=== PATIENT | female | born 2000 | race Caucasian/White ===

== ENCOUNTER 2019-10-02 07:18 | Emergency (ER) | payer BC ==
[2019-10-02] MEDS ORDERED: Mupirocin Oint 22 GM Tube TOP ONE (07:34)
--- NOTE | 2019-10-02 07:40 | EDM.PDOC ---
ED HPI GENERAL MEDICAL PROBLEM - General Chief Complaint: Skin Complaint Stated Complaint: CELLULITIS Time Seen by Provider: 10/02/19 07:19 - History of Present Illness INITIAL COMMENTS - FREE TEXT/NARRATIVE: 19-year-old female at 25 weeks gestation presenting with mild discomfort under the right armpit for the last 2 to 3 days. Patient reports 1 year ago she was told she had cellulitis of that area. No fevers no chills patient otherwise feels well. No exacerbating or alleviating factors mild burning irritation to the area. No other associated symptoms. She notes that her OB has been monitoring her blood pressure it is been minimally elevated during this but they are currently just watching it. - Related Data Allergies Allergy/AdvReac Type Severity Reaction Status Date / Time No Known Allergies Allergy Verified 10/02/19 07:32 Home Meds: Home Meds Mupirocin Oint [Bactroban Oint] 22 gm .XX TID #1 tube 10/02/19 [Rx] Past Medical History HEENT History: Reports: None Cardiovascular History: Reports: None Respiratory History: Reports: None Genitourinary History: Reports: None PRACTICE SUPPORT SPECIALIST History: Reports: Other (See Below) Other PRACTICE SUPPORT SPECIALIST History: ovarian cyst Musculoskeletal History: Reports: None Neurological History: Reports: None Psychiatric History: Reports: None Endocrine/Metabolic History: Reports: None Hematologic History: Reports: None Immunologic History: Reports: None Dermatologic History: Reports: None - Infectious Disease History Infectious Disease History: Reports: None - Past Surgical History Head Surgeries/Procedures: Reports: None HEENT Surgical History: Reports: Adenoidectomy, Tonsillectomy GI Surgical History: Reports: Cholecystectomy Female Surgical History: Reports: Cystectomy Social & Family History - Family History Family Medical History: Noncontributory - Tobacco Use Smoking Status *Q: Never Smoker - Caffeine Use Caffeine Use: Reports: None - Recreational Drug Use Recreational Drug Use: No ED ROS GENERAL - Review of Systems Review Of Systems: See Below Free Text/Narrative/Comment: General: No fever. Skin: Per HPI Eyes: No vision problems. ENT: No sore throat. Neck: No neck stiffness. Respiratory: No shortness of breath. Cardiac: No chest pain. Gastrointestinal: No nausea, vomiting or abdominal pain. Urinary: No dysuria. Musculoskeletal: No myalgias/arthralgias. Neurologic: No headache. ED EXAM, SKIN/RASH Exam: See Below Text/Narrative:: General Appearance: No acute distress, appears comfortable Skin: Very small pustules with minimal basilar erythema in the right axilla no focal fluctuance no sign of spreading cellulitis no palpable mass affected area roughly 2 cm x 5 cm in the central fold of the axilla HEENT: Normocephalic/atraumatic, sclera anicteric, mucous membranes moist Neck: Normal range of motion Musculoskeletal: No edema or tenderness Neurologic: Awake, alert, no obvious deficits, moving all extremities Psychiatric: Appropriate, cooperative Course - Vital Signs Last Recorded V/S: Last Vital Signs Temp 96.9 F 10/02/19 07:29 Pulse 100 10/02/19 07:29 Resp 17 10/02/19 07:29 BP 148/89 H 10/02/19 07:29 Pulse Ox 93 L 10/02/19 07:29 - Orders/Labs/Meds Meds: Medications Discontinued Medications Generic Name Dose Route Start Last Admin Trade Name Freq PRN Reason Stop Dose Admin Mupirocin 1 gm 10/02/19 07:34 Bactroban Oint TOP 10/02/19 07:35 ONETIME ONE Departure - Departure Time of Disposition: 07:36 Disposition: Home, Self-Care 01 Condition: Good Clinical Impression: Folliculitis - Discharge Information *PRESCRIPTION DRUG MONITORING PROGRAM REVIEWED*: Not Applicable *COPY OF PRESCRIPTION DRUG MONITORING REPORT IN PATIENT DIXON: Not Applicable Prescriptions: Mupirocin Oint [Bactroban Oint] 22 gm .XX TID #1 tube Instructions: Folliculitis Referrals: Mc Ann MD [Primary Care Provider] - Forms: ED Department Discharge Additional Instructions: You have been given a small tube of Bactroban for the next few days. Please wash the area at least once a day gently with soapy water. Please apply the Bactroban ointment 3 times daily for the next 7 days. You should notice improvement relatively quickly over the next few days. The following information is given to patients seen in the emergency department who are being discharged to home. This information is to outline your options for follow-up care. We provide all patients seen in our emergency department with a follow-up referral. The need for follow-up, as well as the timing and circumstances, are variable depending upon the specifics of your emergency department visit. If you don't have a primary care physician on staff, we will provide you with a referral. We always advise you to contact your personal physician following an emergency department visit to inform them of the circumstance of the visit and for follow-up with them and/or the need for any referrals to a consulting specialist. The emergency department will also refer you to a specialist when appropriate. This referral assures that you have the opportunity for follow-up care with a specialist. All of these measure are taken in an effort to provide you with optimal care, which includes your follow-up. Under all circumstances we always encourage you to contact your private physician who remains a resource for coordinating your care. When calling for follow-up care, please make the office aware that this follow-up is from your recent emergency room visit. If for any reason you are refused follow-up, please contact the [facility] Emergency Department at and asked to speak to the emergency department charge nurse. Sepsis Event Note (ED) - Evaluation Sepsis Screening Result: No Definite Risk - Focused Exam Vital Signs: Vital Signs Temp Pulse Resp BP Pulse Ox 10/02/19 07:29 96.9 F 100 17 148/89 H 93 L - Assessment/Plan Assessment:: 19-year-old female is presenting with folliculitis as described in physical exam no signs of overriding cellulitis no sign of abscess no symptoms of systemic infection patient is very minimally hypertensive. Patient is aware of this and her OB is reportedly monitoring it. She is not far enough along to be worried about preeclampsia at this point. And again she reports that she has established follow-up with her OB and that her OB is aware of this. Given her discomfort signs of folliculitis will prescribe topical mupirocin. Because pharmacies are closed today we will dispense a single tube here and a prescription was sent to [facility] for her to pick pulling machine operator tomorrow.
[2019-10-02 07:56] VITALS: BP 143/80; PULSE 95
== END 2019-10-02 07:54 | disposition home or self-care (01) ==
LOC: MW.ED 07:18
DX: O99.712 Diseases of the skin and subcutaneous tissue complicating pregnancy, second trimester (principal); L73.9 Follicular disorder, unspecified; Z3A.25 25 weeks gestation of pregnancy
CPT/HCPCS: 99282; A9270

== ENCOUNTER 2019-12-20 17:03 | Inpatient (IN) | payer BC ==
[2019-12-20] MEDS ORDERED: Sodium Chloride 0.9% 2.5 ML Syringe FLUSH PRN (17:12)
[2019-12-20] MEDS ORDERED: Tranexamic Acid 1,000 MG in Sodium Chloride 0.9% 100 ML IV PRN (17:12)
[2019-12-20] MEDS ORDERED: Methylergonovine 0.2 MG/1 ML Amp IM PRN (17:12)
[2019-12-20] MEDS ORDERED: Terbutaline 1 MG/ML SDV SUBCUT PRN (17:12)
[2019-12-20] MEDS ORDERED: Ondansetron 4 MG/2 ML SDV IVPUSH PRN (17:12)
[2019-12-20] MEDS ORDERED: Water For Irrigation,Sterile 1,000 ML Container IRR PRN (17:12)
[2019-12-20] MEDS ORDERED: Nalbuphine 10 MG/1 ML Vial IVPUSH PRN (17:12)
[2019-12-20] MEDS ORDERED: Lidocaine 1% 50 ML MDV INJECT PRN (17:12)
[2019-12-20] MEDS ORDERED: Misoprostol 200 MCG Tab PO PRN (17:12)
[2019-12-20] MEDS ORDERED: Carboprost Tromethamine 250 MCG/1 ML Amp IM PRN (17:12)
[2019-12-20] MEDS ORDERED: Sodium Chloride 0.9% 10 ML SDV IV PRN (17:12)
[2019-12-20] MEDS ORDERED: Sodium Chloride 0.9% 10 ML Syringe FLUSH PRN (17:12)
[2019-12-20] MEDS ORDERED: Butorphanol 1 MG/ML SDV IVPUSH PRN (17:12)
[2019-12-20] MEDS ORDERED: Oxytocin/0.9 % Sodium Chloride 30 UNIT/500 ML BAG IV SCH ×2 (17:15)
[2019-12-20] MEDS ORDERED: Ampicillin 2 GM in Sodium Chloride 0.9% 100 ML IV ONE (17:30)
[2019-12-20] MEDS: Lactated Ringers 1,000 ML IV SCH (18:09)
[2019-12-20] MEDS: Misoprostol 25 MCG (1/4 of 100 MCG) Tab VAG PRN ×2 (18:12→22:18)
[2019-12-20 20:08] LABS: BLOOD UREA NITROGEN,BUN 7 mg/dL (7.0-18.0); CARBON DIOXIDE,CO2 22.1 mmol/L (21.0-32.0); CHLORIDE,CL 104 mmol/L (98-107); GLUCOSE RANDOM 88 mg/dL (74-106); POTASSIUM,K 3.9 mmol/L (3.5-5.1); SODIUM,NA 136 mmol/L (136-145)
[2019-12-20] MEDS: Ampicillin 1 GM in Sodium Chloride 0.9% 50 ML IV SCH (20:44)
[2019-12-20] MEDS: Labetalol 100 MG Tab PO SCH (20:45)
[2019-12-21] MEDS: Ampicillin 1 GM in Sodium Chloride 0.9% 50 ML IV SCH ×3 (00:59→10:28)
[2019-12-21] MEDS: Misoprostol 25 MCG (1/4 of 100 MCG) Tab VAG PRN (02:17)
[2019-12-21] MEDS ORDERED: fentaNYL 100 MCG/2 ML SDV ONE (04:58)
[2019-12-21] MEDS ORDERED: Ropivacaine HCl/PF 100 ML ONE (04:58)
[2019-12-21] MEDS ORDERED: Ropivacaine 0.2% PF 2 MG/ML 20 ML SDV ONE (04:58)
--- NOTE | 2019-12-21 05:56 | PCM.PREANE ---
Preanesthetic Assessment - Procedure Proposed Procedure: CHRISTA - Anesthesia/Transfusion/Family Hx Anesthesia History: Prior Anesthesia Without Reaction Family History of Anesthesia Reaction: No Transfusion History: No Prior Transfusion(s) Intubation History: Unknown - Review of Systems General: No Symptoms Pulmonary: No Symptoms Cardiovascular: No Symptoms Gastrointestinal: No Symptoms, Other (Reflux) Neurological: Other (Back Pain) - Physical Assessment NPO Status Date: 12/21/19 NPO Status Time: 05:00 (Clear Liquids) Vital Signs: Last Vital Signs Temp Pulse 102 H 12/20/19 20:45 Resp BP 162/93 H 12/20/19 20:45 Pulse Ox Height: 1.57 m Weight: 98.883 kg ASA Class: 2 Mental Status: Alert & Oriented x3 Airway Class: Mallampati = 2 Dentition: Reports: Normal Dentition Thyro-Mental Finger Breadths: 3 Mouth Opening Finger Breadths: 3 ROM/Head Extension: Full Lungs: Clear to Auscultation Cardiovascular: Regular Rate - Lab Values: Laboratory Last Values WBC 12.52 K/uL (4.0-11.0) H 12/20/19 17:48 RBC 4.13 M/uL (4.30-5.90) L 12/20/19 17:48 Hgb 11.6 g/dL (12.0-16.0) L 12/20/19 17:48 Hct 35.8 % (36.0-46.0) L 12/20/19 17:48 MCV 86.7 fL (80.0-98.0) 12/20/19 17:48 MCH 28.1 pg (27.0-32.0) 12/20/19 17:48 MCHC 32.4 g/dL (31.0-37.0) 12/20/19 17:48 RDW Std Deviation 44.8 fl (28.0-62.0) 12/20/19 17:48 RDW Coeff of Ashwin 14 % (11.0-15.0) 12/20/19 17:48 Plt Count 178 K/uL (150-400) 12/20/19 17:48 MPV 12.50 fL (7.40-12.00) H 12/20/19 17:48 Nucleated RBC % 0.0 /100WBC 12/20/19 17:48 Nucleated RBCs # 0 K/uL 12/20/19 17:48 Sodium 136 mmol/L (136-145) 12/20/19 18:43 Potassium 3.9 mmol/L (3.5-5.1) 12/20/19 18:43 Chloride 104 mmol/L (98-107) 12/20/19 18:43 Carbon Dioxide 22.1 mmol/L (21.0-32.0) 12/20/19 18:43 BUN 7 mg/dL (7.0-18.0) 12/20/19 18:43 Creatinine 0.5 mg/dL (0.6-1.0) L 12/20/19 18:43 Est Cr Clr Drug Dosing 140.77 mL/min 12/20/19 18:43 Estimated GFR (MDRD) > 60.0 ml/min 12/20/19 18:43 Glucose 88 mg/dL (74-106) 12/20/19 18:43 Uric Acid 4.1 mg/dL (2.6-7.2) 12/20/19 18:43 Calcium 8.8 mg/dL (8.5-10.1) 12/20/19 18:43 Total Bilirubin 0.3 mg/dL (0.2-1.0) 12/20/19 18:43 AST 24 IU/L (15-37) 12/20/19 18:43 ALT 36 IU/L (14-63) 12/20/19 18:43 Alkaline Phosphatase 155 U/L (46-116) H 12/20/19 18:43 Total Protein 6.6 g/dL (6.4-8.2) 12/20/19 18:43 Albumin 2.9 g/dL (3.4-5.0) L 12/20/19 18:43 Globulin 3.7 g/dL (2.6-4.0) 12/20/19 18:43 Albumin/Globulin Ratio 0.8 (0.9-1.6) L 12/20/19 18:43 Ur Random Creatinine 79.1 mg/dL 12/20/19 20:56 U Random Total Protein 16.7 mg/dL (<11.9) H 12/20/19 20:56 Protein/Creatinin Ratio 0.2 12/20/19 20:56 Membrane Rupture POSITIVE 12/21/19 03:42 SARS-CoV-2 RNA (SHIRAZ) NEGATIVE (NEGATIVE) 12/20/19 18:05 Blood Type O POSITIVE 12/20/19 17:48 Antibody Screen NEGATIVE 12/20/19 17:48 - Allergies Allergies/Adverse Reactions: Allergies Allergy/AdvReac Type Severity Reaction Status Date / Time latex Allergy Hives Verified 12/18/19 17:04 - Blood Blood Available: No Product(s) Available: None - Anesthesia Plan Pre-Op Medication Ordered: None - Acknowledgements Anesthesia Type Planned: Epidural Pt an Appropriate Candidate for the Planned Anesthesia: Yes Alternatives and Risks of Anesthesia Discussed w Pt/Guardian: Yes Pt/Guardian Understands and Agrees with Anesthesia Plan: Yes Additional Comments: Discussed, ? answered, permit signed, accepts and wishes to proceed. Acive labor, 3+ cm, membranes ruptured, pain with contractions 01/06. PreAnesthesia Questionnaire HEENT History: Reports: None Cardiovascular History: Reports: Other (See Below) Other Cardiovascular History: gestational HTN Respiratory History: Reports: None Gastrointestinal History: Reports: None Genitourinary History: Reports: None SUPERINTENDENT WATER AND SEWER SYSTEMS History: Reports: , Other (See Below) Other OB/BYN History: ovarian cyst Musculoskeletal History: Reports: None Neurological History: Reports: None Psychiatric History: Reports: Depression Endocrine/Metabolic History: Reports: None Hematologic History: Reports: Other (See Below) Other Hematologic History: Factor V Immunologic History: Reports: None Dermatologic History: Reports: None - Infectious Disease History Infectious Disease History: Reports: MRSA - Past Surgical History HEENT Surgical History: Reports: Adenoidectomy, Myringotomy w Tube(s), Oral Surgery, Tonsillectomy Cardiovascular Surgical History: Reports: None GI Surgical History: Reports: Cholecystectomy Female Surgical History: Reports: Cystectomy - SUBSTANCE USE Smoking Status *Q: Former Smoker Tobacco Use Within Last Twelve Months: Cigarettes Recreational Drug Use History: No - HOME MEDS Home Medications: Home Meds Vits #93/Iron Fum/FA [ Formula Tablet] 1 each PO DAILY 12/11/19 [History] Labetalol [Normodyne] 1 tab PO BID 12/18/19 [History] - CURRENT (IN HOUSE) MEDS Current Meds: Current Medications Butorphanol Tartrate (Stadol) 1 mg IVPUSH Q1H PRN PRN Reason: Pain Carboprost Tromethamine (Hemabate Ds) 250 mcg IM ASDIRECTED PRN PRN Reason: Post Hemorrhage Oxytocin/Sodium Chloride (Oxytocin 30 Unit/500 Ml-Ns) 30 unit in 500 mls @ 999 mls/hr IV TITRATE [facility] Tranexamic Acid 1,000 mg/ (Sodium Chloride) 110 mls @ 660 mls/hr IV ONETIME PRN PRN Reason: Bleeding Oxytocin/Sodium Chloride (Oxytocin 30 Unit/500 Ml-Ns) 30 unit in 500 mls @ 2 mls/hr IV TITRATE [facility]; Protocol Ampicillin Sodium 1 gm/ Sodium (Chloride) 50 mls @ 100 mls/hr IV Q4H [facility] Last Admin: 12/21/19 00:59 Dose: 100 mls/hr Documented by: Lactated Ringer's (Ringers, Lactated) 1,000 mls @ 150 mls/hr IV ASDIRECTED [facility] Last Admin: 12/20/19 18:09 Dose: 150 mls/hr Documented by: Labetalol HCl (Normodyne) 100 mg PO BID [facility] Last Admin: 12/20/19 20:45 Dose: 100 mg Documented by: Lidocaine HCl (Xylocaine 1%) 50 ml INJECT ONETIME PRN PRN Reason: Laceration repair Methylergonovine Maleate (Methergine) 0.2 mg IM ASDIRECTED PRN PRN Reason: Post Hemorrhage Misoprostol (Cytotec) 200 mcg PO ONETIME PRN PRN Reason: Post Hemorrhage Misoprostol (Cytotec) 25 mcg VAG Q4H PRN PRN Reason: Cervical Ripening Last Admin: 12/21/19 02:17 Dose: 25 mcg Documented by: Ondansetron HCl (Zofran) 4 mg IVPUSH Q6H PRN PRN Reason: Nausea/Vomiting Sodium Chloride (Saline Flush) 10 ml FLUSH ASDIRECTED PRN PRN Reason: Keep Vein Open Sodium Chloride (Saline Flush) 2.5 ml FLUSH ASDIRECTED PRN PRN Reason: Keep Vein Open Sodium Chloride (Normal Saline) 10 ml IV ASDIRECTED PRN PRN Reason: IV Use Sterile Water (Sterile Water For Irrigation) 1,000 ml IRR ASDIRECTED PRN PRN Reason: delivery Terbutaline Sulfate (Brethine) 0.25 mg SUBCUT ASDIRECTED PRN PRN Reason: Tacysystole Discontinued Medications Fentanyl (Sublimaze) Confirm Administered Dose 100 mcg .ROUTE .STK-MED ONE Stop: 12/21/19 04:59 Ampicillin Sodium 2 gm/ Sodium (Chloride) 100 mls @ 200 mls/hr IV ONETIME ONE Stop: 12/20/19 17:59 Last Admin: 12/20/19 18:10 Dose: 200 mls/hr Documented by: Ropivacaine (Naropin 0.2%) Confirm Administered Dose 100 mls @ as directed .ROUTE .STK-MED ONE Stop: 12/21/19 04:59 Ropivacaine (Naropin 0.2%) Confirm Administered Dose 20 ml .ROUTE .STK-MED ONE Stop: 12/21/19 04:59
[2019-12-21] MEDS: Lactated Ringers 1,000 ML IV SCH (06:51)
[2019-12-21] MEDS ORDERED: Desflurane 240 ML Bottle ONE (08:41)
[2019-12-21] MEDS: Labetalol 100 MG Tab PO SCH ×2 (10:29→21:27)
[2019-12-21] MEDS ORDERED: Acetaminophen 500 MG Tab PO PRN (12:36)
[2019-12-21] MEDS ORDERED: oxyCODONE 5 MG Tab PO PRN (12:36)
[2019-12-21] MEDS ORDERED: Lanolin 100% Cream 7 GM Tube TOP PRN (12:36)
[2019-12-21] MEDS ORDERED: Bisacodyl 10 MG Supp RECTAL PRN (12:36)
[2019-12-21] MEDS ORDERED: Ibuprofen 400 MG Tab PO PRN (12:36)
--- NOTE | 2019-12-21 12:50 | PCM.DEL ---
L & D Note - General Info Date of Service: 12/21/19 Mother's Due Date: 01/10/20 - Delivery Note Labor: Induced by Oxytocin Cervical Ripening Method: Misoprostil Delivery Outcome: Livebirth Delivery Method: Spontaneous Vaginal Delivery-Single Presentation: Left Occiput Anterior (LAURA) Nuchal Cord: Present (x1), Reduced Anesthesia Type: Epidural Amniotic Fluid Description: Clear Episiotomy Type: None Laceration: 2nd Degree, Periurethral Suture type: Vicryl, Chromic Suture size: 3-0 Placenta: Intact, Spontaneous Cord: 3 Vessels Estimated Blood Loss: 300 Resuscitation Needed: Yes : Bulb Syringe, Stimulated, Warmed Score 1 min: 8 Score 5 min: 9 - General Info Date of Service: 12/21/19 Admission Dx/Problem (Free Text): 19 year old G1 at 37.1wga with gestation hypertension - Patient Data Vitals - Most Recent: Last Vital Signs Temp Pulse 110 H 12/21/19 10:29 Resp BP 141/99 H 12/21/19 10:29 Pulse Ox Weight - Most Recent: 217 lb 15.995 oz Lab Results Last 24 Hours: Laboratory Results - last 24 hr 12/20/19 12/20/19 12/20/19 Range/Units 17:48 17:48 18:05 WBC 12.52 H (4.0-11.0) K/uL RBC 4.13 L (4.30-5.90) M/uL Hgb 11.6 L (12.0-16.0) g/dL Hct 35.8 L (36.0-46.0) % MCV 86.7 (80.0-98.0) fL MCH 28.1 (27.0-32.0) pg MCHC 32.4 (31.0-37.0) g/dL RDW Std Deviation 44.8 (28.0-62.0) fl RDW Coeff of Ashwin 14 (11.0-15.0) % Plt Count 178 (150-400) K/uL MPV 12.50 H (7.40-12.00) fL Nucleated RBC % 0.0 /100WBC Nucleated RBCs # 0 K/uL Sodium (136-145) mmol/L Potassium (3.5-5.1) mmol/L Chloride (98-107) mmol/L Carbon Dioxide (21.0-32.0) mmol/L BUN (7.0-18.0) mg/dL Creatinine (0.6-1.0) mg/dL Est Cr Clr Drug Dosing mL/min Estimated GFR (MDRD) ml/min Glucose (74-106) mg/dL Uric Acid (2.6-7.2) mg/dL Calcium (8.5-10.1) mg/dL Total Bilirubin (0.2-1.0) mg/dL AST (15-37) IU/L ALT (14-63) IU/L Alkaline Phosphatase (46-116) U/L Total Protein (6.4-8.2) g/dL Albumin (3.4-5.0) g/dL Globulin (2.6-4.0) g/dL Albumin/Globulin Ratio (0.9-1.6) Ur Random Creatinine mg/dL U Random Total Protein (<11.9) mg/dL Protein/Creatinin Ratio Membrane Rupture SARS-CoV-2 RNA (SHIRAZ) NEGATIVE (NEGATIVE) Blood Type O POSITIVE Antibody Screen NEGATIVE 12/20/19 12/20/19 12/21/19 Range/Units 18:43 20:56 03:42 WBC (4.0-11.0) K/uL RBC (4.30-5.90) M/uL Hgb (12.0-16.0) g/dL Hct (36.0-46.0) % MCV (80.0-98.0) fL MCH (27.0-32.0) pg MCHC (31.0-37.0) g/dL RDW Std Deviation (28.0-62.0) fl RDW Coeff of Ashwin (11.0-15.0) % Plt Count (150-400) K/uL MPV (7.40-12.00) fL Nucleated RBC % /100WBC Nucleated RBCs # K/uL Sodium 136 (136-145) mmol/L Potassium 3.9 (3.5-5.1) mmol/L Chloride 104 (98-107) mmol/L Carbon Dioxide 22.1 (21.0-32.0) mmol/L BUN 7 (7.0-18.0) mg/dL Creatinine 0.5 L (0.6-1.0) mg/dL Est Cr Clr Drug Dosing 140.77 mL/min Estimated GFR (MDRD) > 60.0 ml/min Glucose 88 (74-106) mg/dL Uric Acid 4.1 (2.6-7.2) mg/dL Calcium 8.8 (8.5-10.1) mg/dL Total Bilirubin 0.3 (0.2-1.0) mg/dL AST 24 (15-37) IU/L ALT 36 (14-63) IU/L Alkaline Phosphatase 155 H (46-116) U/L Total Protein 6.6 (6.4-8.2) g/dL Albumin 2.9 L (3.4-5.0) g/dL Globulin 3.7 (2.6-4.0) g/dL Albumin/Globulin Ratio 0.8 L (0.9-1.6) Ur Random Creatinine 79.1 mg/dL U Random Total Protein 16.7 H (<11.9) mg/dL Protein/Creatinin Ratio 0.2 Membrane Rupture POSITIVE SARS-CoV-2 RNA (SHIRAZ) (NEGATIVE) Blood Type Antibody Screen Med Orders - Current: Current Medications Acetaminophen (Tylenol Extra Strength) 500 mg PO Q4H PRN PRN Reason: Pain Acetaminophen (Tylenol Extra Strength) 1,000 mg PO Q4H PRN PRN Reason: Pain Benzocaine/Menthol (Dermoplast Pain Relief 20%-0.5% [place]) 78 gm TOP ASDIRECTED PRN PRN Reason: Perineal Comfort Measure Bisacodyl (Dulcolax) 10 mg RECTAL ONETIME PRN PRN Reason: Constipation Butorphanol Tartrate (Stadol) 1 mg IVPUSH Q1H PRN PRN Reason: Pain Carboprost Tromethamine (Hemabate Ds) 250 mcg IM ASDIRECTED PRN PRN Reason: Post Hemorrhage Docusate Sodium (Colace) 100 mg PO BID PRN PRN Reason: Constipation Emollient Ointment (Lansinoh Hpa) 0 gm TOP ASDIRECTED PRN PRN Reason: Sore Nipples Oxytocin/Sodium Chloride (Oxytocin 30 Unit/500 Ml-Ns) 30 unit in 500 mls @ 999 mls/hr IV TITRATE [facility] Tranexamic Acid 1,000 mg/ (Sodium Chloride) 110 mls @ 660 mls/hr IV ONETIME PRN PRN Reason: Bleeding Oxytocin/Sodium Chloride (Oxytocin 30 Unit/500 Ml-Ns) 30 unit in 500 mls @ 2 mls/hr IV TITRATE [facility]; Protocol Ampicillin Sodium 1 gm/ Sodium (Chloride) 50 mls @ 100 mls/hr IV Q4H [facility] Last Admin: 12/21/19 10:28 Dose: 100 mls/hr Documented by: Lactated Ringer's (Ringers, Lactated) 1,000 mls @ 150 mls/hr IV ASDIRECTED [facility] Last Admin: 12/21/19 06:51 Dose: 150 mls/hr Documented by: Ibuprofen (Motrin) 400 mg PO Q4H PRN PRN Reason: Pain Ibuprofen (Motrin) 800 mg PO Q6H PRN PRN Reason: Pain Labetalol HCl (Normodyne) 100 mg PO BID [facility] Last Admin: 12/21/19 10:29 Dose: 100 mg Documented by: Labetalol HCl (Normodyne) 100 mg PO BID [facility] Lidocaine HCl (Xylocaine 1%) 50 ml INJECT ONETIME PRN PRN Reason: Laceration repair Methylergonovine Maleate (Methergine) 0.2 mg IM ASDIRECTED PRN PRN Reason: Post Hemorrhage Misoprostol (Cytotec) 200 mcg PO ONETIME PRN PRN Reason: Post Hemorrhage Misoprostol (Cytotec) 25 mcg VAG Q4H PRN PRN Reason: Cervical Ripening Last Admin: 12/21/19 02:17 Dose: 25 mcg Documented by: Non-Formulary Medication ( Vits #93/Iron Fum/Fa [ Formula Tablet]) 1 each PO DAILY [facility] Ondansetron HCl (Zofran) 4 mg IVPUSH Q6H PRN PRN Reason: Nausea/Vomiting Oxycodone HCl (Oxycodone) 5 mg PO Q2H PRN PRN Reason: Pain Sodium Chloride (Saline Flush) 10 ml FLUSH ASDIRECTED PRN PRN Reason: Keep Vein Open Sodium Chloride (Saline Flush) 2.5 ml FLUSH ASDIRECTED PRN PRN Reason: Keep Vein Open Sodium Chloride (Normal Saline) 10 ml IV ASDIRECTED PRN PRN Reason: IV Use Sterile Water (Sterile Water For Irrigation) 1,000 ml IRR ASDIRECTED PRN PRN Reason: delivery Terbutaline Sulfate (Brethine) 0.25 mg SUBCUT ASDIRECTED PRN PRN Reason: Tacysystole Pao Bent[place] (Tucks) 1 pad TOP ASDIRECTED PRN PRN Reason: comfort care Discontinued Medications Desflurane (Suprane) Confirm Administered Dose 480 ml .ROUTE .STK-MED ONE Stop: 12/21/19 08:42 Fentanyl (Sublimaze) Confirm Administered Dose 100 mcg .ROUTE .STK-MED ONE Stop: 12/21/19 04:59 Ampicillin Sodium 2 gm/ Sodium (Chloride) 100 mls @ 200 mls/hr IV ONETIME ONE Stop: 12/20/19 17:59 Last Admin: 12/20/19 18:10 Dose: 200 mls/hr Documented by: Ropivacaine (Naropin 0.2%) Confirm Administered Dose 100 mls @ as directed .ROUTE .STK-MED ONE Stop: 12/21/19 04:59 Ropivacaine (Naropin 0.2%) Confirm Administered Dose 20 ml .ROUTE .STK-MED ONE Stop: 12/21/19 04:59 - Problem List Review Problem List Initiated/Reviewed/Updated: Yes - My Orders Last 24 Hours: My Active Orders 12/20/19 17:12 Patient Status [ADT] Routine Bedrest Bathroom Privileges [RC] ASDIRECTED Communication Order [RC] ASDIRECTED Communication Order [RC] ASDIRECTED Communication Order [RC] ASDIRECTED Heart Tones [RC] CONTINUOUS Non Stress Test [RC] PER UNIT ROUTINE May Shower [RC] ASDIRECTED Notify Provider [RC] PRN Notify Provider [RC] PRN Notify Provider [RC] PRN Notify Provider [RC] STAT Oxygen Therapy [RC] ASDIRECTED Up ad Veda [RC] ASDIRECTED Vaginal Exam [RC] PRN Vaginal Exam [RC] PRN Vital Signs [RC] PER UNIT ROUTINE Vital Signs [RC] PER UNIT ROUTINE Butorphanol [Stadol] 1 mg IVPUSH Q1H PRN Carboprost Tromethamine [Hemabate DS] 250 mcg IM ASDIRECTED PRN Lidocaine 1% [Xylocaine 1%] 50 ml INJECT ONETIME PRN Methylergonovine [Methergine] 0.2 mg IM ASDIRECTED PRN Ondansetron [Zofran] 4 mg IVPUSH Q6H PRN Sodium Chloride 0.9% [Normal Saline] 10 ml IV ASDIRECTED PRN Sodium Chloride 0.9% [Saline Flush] 10 ml FLUSH ASDIRECTED PRN Sodium Chloride 0.9% [Saline Flush] 2.5 ml FLUSH ASDIRECTED PRN Terbutaline [Brethine] 0.25 mg SUBCUT ASDIRECTED PRN Tranexamic Acid [Cyklokapron] 1,000 mg Sodium Chloride 0.9% [Normal Saline] 100 ml IV ONETIME Water For Irrigation,Sterile [Sterile Water for Irrigation] 1,000 ml IRR ASDIRECTED PRN miSOPROStoL [Cytotec] 200 mcg PO ONETIME PRN miSOPROStoL [Cytotec] 25 mcg VAG Q4H PRN Scalp Electrode [WOMSER] Per Unit Routine Peripheral IV Insertion Adult [OM.PC] Routine Resuscitation Status Routine 12/20/19 17:15 Lactated Ringers [Ringers, Lactated] 1,000 ml IV ASDIRECTED Oxytocin/0.9 % Sodium Chloride [Oxytocin 30 Unit/500 ML-NS] 30 unit in 500 ml IV TITRATE Oxytocin/0.9 % Sodium Chloride [Oxytocin 30 Unit/500 ML-NS] 30 unit in 500 ml IV TITRATE Medication Administration Instruction [OM.PC] Q3H 12/20/19 17:48 RPR (SYPHILIS SERO) W/ RFLX [REF] Routine 12/20/19 21:30 Ampicillin 1 gm Sodium Chloride 0.9% [Normal Saline] 50 ml IV Q4H 12/21/19 12:36 Patient Status [ADT] Routine May Shower [RC] ASDIRECTED Up ad Veda [RC] ASDIRECTED Vital Signs [RC] PER UNIT ROUTINE Acetaminophen [Tylenol Extra Strength] 1,000 mg PO Q4H PRN Acetaminophen [Tylenol Extra Strength] 500 mg PO Q4H PRN Benzocaine/Menthol [Dermoplast Pain Relief 20%-0.5% [place]] 78 gm TOP ASDIRECTED PRN Docusate Sodium [Colace] 100 mg PO BID PRN Ibuprofen [Motrin] 400 mg PO Q4H PRN Ibuprofen [Motrin] 800 mg PO Q6H PRN Lanolin [Lansinoh HPA] See Dose Instructions TOP ASDIRECTED PRN bisacodyL [Dulcolax] 10 mg RECTAL ONETIME PRN oxyCODONE 5 mg PO Q2H PRN witch Peace [Tucks] 1 pad TOP ASDIRECTED PRN Assess Lochia [WOMSER] Per Unit Routine Assess Uterine Involution [WOMSER] Per Unit Routine Peripheral IV Discontinue [OM.PC] Routine 12/21/19 21:00 Labetalol [Normodyne] 100 mg PO BID 12/22/19 05:11 HEMOGLOBIN/HEMATOCRIT,HH [HEME] Timed 12/22/19 09:00 Vits #93/Iron Fum/FA [ Formula Tablet] 1 each PO DAILY - Assessment Assessment:: 19 year old G1 now P1 at 37.1wga s/p IOL for gestational hypertension - Plan Plan:: Routine care * Rh +, rubella immune * GBS positive, status post IV Ampicillin * Hgb 11.6 upon admission - EBL 300cc, will monitor blood loss * Ambulate after epidural wears off * Encourage fluid intake * assistance as needed Gestational hypertension * BPs normotensive overnight and throughout the labor * Preeclampsia labs negative * Asymptomatic * Labetalol 100mg BID Dispo: stable. Anticipate routine course.
[2019-12-21] MEDS: Ibuprofen 800 MG Tab PO PRN (15:17)
[2019-12-21] MEDS: Acetaminophen 500 MG Tab PO PRN ×2 (15:18→23:52)
[2019-12-21] MEDS: Benzocaine/Menthol 20%-0.5% Spray 78 GM Cannister TOP PRN (15:22)
[2019-12-21] MEDS: Witch Hazel Medicated Pads 40/Jar TOP PRN (15:24)
[2019-12-22] MEDS: Docusate Sodium 100 MG Cap PO PRN ×2 (02:14→21:58)
[2019-12-22] MEDS: Labetalol 100 MG Tab PO SCH ×4 (08:10→21:57)
[2019-12-22] MEDS: Acetaminophen 500 MG Tab PO PRN ×2 (08:11→21:57)
--- NOTE | 2019-12-22 08:39 | PCM.PN ---
- General Info Date of Service: 12/22/19 Admission Dx/Problem (Free Text): 19 year old G1 at 37.1wga with gestation hypertension Subjective Update: Patient sitting upright, nursing baby. No new concerns overnight. Ambulating and voiding without difficulty. Pain well controlled. Lochia decreasing. Denies fever/chills, headache, vision changes, abdominal pain. BPs normotensive with Labetalol. - Patient Data Vitals - Most Recent: Last Vital Signs Temp 97.6 F 12/22/19 04:00 Pulse 86 12/22/19 08:10 Resp 12 12/22/19 04:00 BP 133/76 12/22/19 08:10 Pulse Ox 97 12/22/19 04:00 Weight - Most Recent: 217 lb 15.995 oz Lab Results Last 24 Hours: Laboratory Results - last 24 hr 12/21/19 12/22/19 Range/Units 11:57 05:48 Hgb 10.8 L (12.0-16.0) g/dL Hct 34.3 L (36.0-46.0) % Cord ABG pH QNS Cord ABG Base Excess QNS Cord VBG pH 7.347 (7.25-7.45) Cord VBG Base Excess -6 (-10--2) Med Orders - Current: Current Medications Acetaminophen (Tylenol Extra Strength) 500 mg PO Q4H PRN PRN Reason: Pain Acetaminophen (Tylenol Extra Strength) 1,000 mg PO Q4H PRN PRN Reason: Pain Last Admin: 12/22/19 08:11 Dose: 1,000 mg Documented by: Benzocaine/Menthol (Dermoplast Pain Relief 20%-0.5% [place]) 78 gm TOP ASDIRECTED PRN PRN Reason: Perineal Comfort Measure Last Admin: 12/21/19 15:22 Dose: 78 gm Documented by: Bisacodyl (Dulcolax) 10 mg RECTAL ONETIME PRN PRN Reason: Constipation Butorphanol Tartrate (Stadol) 1 mg IVPUSH Q1H PRN PRN Reason: Pain Carboprost Tromethamine (Hemabate Ds) 250 mcg IM ASDIRECTED PRN PRN Reason: Post Hemorrhage Docusate Sodium (Colace) 100 mg PO BID PRN PRN Reason: Constipation Last Admin: 12/22/19 02:14 Dose: 100 mg Documented by: Emollient Ointment (Lansinoh Hpa) 0 gm TOP ASDIRECTED PRN PRN Reason: Sore Nipples Last Admin: 12/21/19 15:20 Dose: 7 gram Documented by: Oxytocin/Sodium Chloride (Oxytocin 30 Unit/500 Ml-Ns) 30 unit in 500 mls @ 999 mls/hr IV TITRATE [facility] Last Admin: 12/21/19 12:03 Dose: 999 mls/hr Documented by: Tranexamic Acid 1,000 mg/ (Sodium Chloride) 110 mls @ 660 mls/hr IV ONETIME PRN PRN Reason: Bleeding Oxytocin/Sodium Chloride (Oxytocin 30 Unit/500 Ml-Ns) 30 unit in 500 mls @ 2 mls/hr IV TITRATE [facility]; Protocol Ampicillin Sodium 1 gm/ Sodium (Chloride) 50 mls @ 100 mls/hr IV Q4H [facility] Last Admin: 12/21/19 10:28 Dose: 100 mls/hr Documented by: Lactated Ringer's (Ringers, Lactated) 1,000 mls @ 150 mls/hr IV ASDIRECTED [facility] Last Admin: 12/21/19 06:51 Dose: 150 mls/hr Documented by: Ibuprofen (Motrin) 400 mg PO Q4H PRN PRN Reason: Pain Ibuprofen (Motrin) 800 mg PO Q6H PRN PRN Reason: Pain Last Admin: 12/21/19 15:17 Dose: 800 mg Documented by: Labetalol HCl (Normodyne) 100 mg PO BID [facility] Last Admin: 12/22/19 08:10 Dose: 100 mg Documented by: Labetalol HCl (Normodyne) 100 mg PO BID [facility] Last Admin: 12/21/19 21:27 Dose: 100 mg Documented by: Lidocaine HCl (Xylocaine 1%) 50 ml INJECT ONETIME PRN PRN Reason: Laceration repair Methylergonovine Maleate (Methergine) 0.2 mg IM ASDIRECTED PRN PRN Reason: Post Hemorrhage Misoprostol (Cytotec) 200 mcg PO ONETIME PRN PRN Reason: Post Hemorrhage Misoprostol (Cytotec) 25 mcg VAG Q4H PRN PRN Reason: Cervical Ripening Last Admin: 12/21/19 02:17 Dose: 25 mcg Documented by: Ondansetron HCl (Zofran) 4 mg IVPUSH Q6H PRN PRN Reason: Nausea/Vomiting Oxycodone HCl (Oxycodone) 5 mg PO Q2H PRN PRN Reason: Pain Vits #93/Iron Fum/Fa [ Formula Tablet] 1 each PO DAILY [facility] Sodium Chloride (Saline Flush) 10 ml FLUSH ASDIRECTED PRN PRN Reason: Keep Vein Open Sodium Chloride (Saline Flush) 2.5 ml FLUSH ASDIRECTED PRN PRN Reason: Keep Vein Open Sodium Chloride (Normal Saline) 10 ml IV ASDIRECTED PRN PRN Reason: IV Use Sterile Water (Sterile Water For Irrigation) 1,000 ml IRR ASDIRECTED PRN PRN Reason: delivery Terbutaline Sulfate (Brethine) 0.25 mg SUBCUT ASDIRECTED PRN PRN Reason: Tacysystole Witch Peace (Tucks) 1 pad TOP ASDIRECTED PRN PRN Reason: comfort care Last Admin: 12/21/19 15:24 Dose: 1 pad Documented by: Discontinued Medications Desflurane (Suprane) Confirm Administered Dose 480 ml .ROUTE .STK-MED ONE Stop: 12/21/19 08:42 Fentanyl (Sublimaze) Confirm Administered Dose 100 mcg .ROUTE .STK-MED ONE Stop: 12/21/19 04:59 Ampicillin Sodium 2 gm/ Sodium (Chloride) 100 mls @ 200 mls/hr IV ONETIME ONE Stop: 12/20/19 17:59 Last Admin: 12/20/19 18:10 Dose: 200 mls/hr Documented by: Ropivacaine (Naropin 0.2%) Confirm Administered Dose 100 mls @ as directed .ROUTE .STK-MED ONE Stop: 12/21/19 04:59 Ropivacaine (Naropin 0.2%) Confirm Administered Dose 20 ml .ROUTE .STK-MED ONE Stop: 12/21/19 04:59 - Exam General: Alert, Oriented Lungs: Normal Respiratory Effort Cardiovascular: Regular Rate GI/Abdominal Exam: Soft, Non-Tender Extremities: Normal Inspection, No Pedal Edema Skin: Warm, Dry, Intact Neurological: No New Focal Deficit Psy/Mental Status: Alert, Normal Affect, Normal Mood Sepsis Event Note - Evaluation Sepsis Screening Result: No Definite Risk - Focused Exam Vital Signs: Vital Signs Temp Pulse Pulse Resp BP BP Pulse Ox 12/22/19 08:10 86 133/76 12/22/19 04:00 97.6 F 87 12 127/66 97 12/21/19 21:27 85 138/76 - Problem List Review Problem List Initiated/Reviewed/Updated: Yes - My Orders Last 24 Hours: My Active Orders 12/21/19 12:36 Patient Status [ADT] Routine May Shower [RC] ASDIRECTED Acetaminophen [Tylenol Extra Strength] 1,000 mg PO Q4H PRN Acetaminophen [Tylenol Extra Strength] 500 mg PO Q4H PRN Benzocaine/Menthol [Dermoplast Pain Relief 20%-0.5% [place]] 78 gm TOP ASDIRECTED PRN Docusate Sodium [Colace] 100 mg PO BID PRN Ibuprofen [Motrin] 400 mg PO Q4H PRN Ibuprofen [Motrin] 800 mg PO Q6H PRN Lanolin [Lansinoh HPA] See Dose Instructions TOP ASDIRECTED PRN bisacodyL [Dulcolax] 10 mg RECTAL ONETIME PRN oxyCODONE 5 mg PO Q2H PRN witch Peace [Tucks] 1 pad TOP ASDIRECTED PRN Assess Lochia [WOMSER] Per Unit Routine Assess Uterine Involution [WOMSER] Per Unit Routine Peripheral IV Discontinue [OM.PC] Routine 12/21/19 21:00 Labetalol [Normodyne] 100 mg PO BID 12/22/19 09:00 Patient's Own Medication [Ptom] 1 each PO DAILY - Assessment Assessment:: 19 year old G1 now P1 PPD #1 s/p IOL for gestational hypertension - Plan Plan:: Routine care * Rh +, rubella immune * GBS positive, status post IV Ampicillin * Hgb 11.6> 10.8 asymptomatic * Encourage fluid intake and ambulation * assistance as needed * Reviewed options for contraception, patient declines at this time. Recommended pelvic rest until visit. Gestational hypertension * BPs normotensive * Preeclampsia labs negative * Asymptomatic * Labetalol 100mg BID Dispo: stable. Anticipate discharge 24-48hrs post delivery pending patient status. Reviewed precautions including fever/chills, intractable nausea/vomiting, severe pain not controlled by Tylenol or Ibuprofen or heavy vaginal bleeding. Patient to follow up in 4-6 weeks for visit.
--- NOTE | 2019-12-22 09:27 | PCM48HPAN ---
Post Anesthesia Note - EVALUATION WITHIN 48HRS OF ANESTHETIC Vital Signs in Normal Range: Yes Patient Participated in Evaluation: Yes Respiratory Function Stable: Yes Airway Patent: Yes Cardiovascular Function Stable: Yes Hydration Status Stable: Yes Pain Control Satisfactory: Yes Nausea and Vomiting Control Satisfactory: Yes Mental Status Recovered: Yes Vital Signs: Last Vital Signs Temp 36.3 C 12/22/19 08:00 Pulse 86 12/22/19 08:10 Resp 16 12/22/19 08:00 BP 133/76 12/22/19 08:10 Pulse Ox 97 12/22/19 08:00 - COMMENTS/OBSERVATIONS Free Text/Narrative:: Doing well. No complaints.
[2019-12-22] MEDS: Ampicillin 1 GM in Sodium Chloride 0.9% 50 ML IV SCH ×2 (11:00→11:01)
--- NOTE | 2019-12-22 12:17 | OR ---
SURGEON: ALIVIA CUELLAR MD DATE OF PROCEDURE: 12/21/2019 PREOPERATIVE DIAGNOSES: 1. A 37-1/7 weeks' intrauterine . 2. Gestational hypertension. POSTOPERATIVE DIAGNOSES: 1. A 37-1/7 weeks' intrauterine . 2. Gestational hypertension. PROCEDURE: Spontaneous vaginal delivery, perineal laceration repair x2. PRIMARY SURGEON: Alivia Cuellar MD TREAD BOOKER: ADRIANA Kern ANESTHESIA: Epidural. ESTIMATED BLOOD LOSS: 300 mL. COMPLICATIONS: None known. FINDINGS: Viable female infant. score of 8 at one minute and 9 at five minutes. Weight pending at this time. Spontaneous delivery, intact placenta, and 3- vessel cord. DISPOSITION: to nursery, mom to LDRP. PROCEDURE DETAILS: Opal is a 19-year-old, 1, at 37-1/7 weeks' gestational age with a diagnosis of gestational hypertension. She presented to Labor and Delivery on the evening of 12/20/2019 for induction of labor with Cytotec. Upon arrival to Labor and Delivery, her COVID-19 testing was negative and vaginal Cytotec was placed. She received 2 doses of vaginal Cytotec and her cervix dilated to 5 cm. She received an epidural for pain management. At approximately 0320, nursing staff noted leaking fluid. An AmniSure was obtained and was positive, clear fluid noted. Labor then progressed uneventfully, and the patient was completely dilated at approximately 1030. The patient started pushing with good efforts, and I was called for delivery. Upon my arrival, the patient was placed into modified dorsal lithotomy and pushing efforts were then resumed after Meléndez catheter was removed. The infant's head delivered atraumatically. Nuchal cord x1 was noted and reduced without difficulty. The infant's body and lower extremities were delivered without difficulty. 's oropharynx and nares were bulb suctioned. was handed off to her mother while attending nursing staff at side. After a delay, the cord was clamped x2 and cut by father of the baby. Cord arterial, cord venous, and cord blood sampling was obtained. Light pressure was applied while the placenta was delivered spontaneously intact. Vigorous fundal uterine massage was then applied while 30 units of Pitocin was delivered in 500 mL of IV fluid. Upon inspection of the cervix and vaginal sidewall along with perineum, there was found to be a second-degree perineal laceration and a periurethral laceration. The second-degree perineal laceration was repaired with 3-0 Vicryl. Prior to repair of the periurethral laceration, a straight catheter was inserted into the urethra. The periurethral laceration was then repaired in a running locked fashion with 3-0 chromic. Hemostasis was evident. Uterus remained firm. Sponge, lap, and needle counts were correct. The patient remained in LDR, and infant to nursery. DAVID / EDDI /[id number] MTDD
[2019-12-22] MEDS: [UNRECOGNIZED DRUG - OTHER] PO SCH (14:23)
[2019-12-22] MEDS: IRON FUM PO SCH (14:23)
[2019-12-22] MEDS: PRENATAL VITS PO SCH (14:23)
[2019-12-23] MEDS: Ibuprofen 800 MG Tab PO PRN (00:43)
--- NOTE | 2019-12-23 05:05 | PCM.PN ---
- General Info Date of Service: 12/23/19 Admission Dx/Problem (Free Text): 19 year old PPD2 s/p with gestation hypertension Subjective Update: No new concerns overnight. Ambulating and voiding without difficulty. Pain well controlled. Lochia decreasing. Denies fever/chills, headache, vision changes, abdominal pain. - Patient Data Vitals - Most Recent: Last Vital Signs Temp 98.0 F 12/23/19 04:00 Pulse 87 12/23/19 04:00 Resp 14 12/23/19 04:00 BP 132/77 12/23/19 04:00 Pulse Ox 98 12/23/19 04:00 Weight - Most Recent: 217 lb 15.995 oz Lab Results Last 24 Hours: Laboratory Results - last 24 hr 12/22/19 Range/Units 05:48 Hgb 10.8 L (12.0-16.0) g/dL Hct 34.3 L (36.0-46.0) % Med Orders - Current: Current Medications Acetaminophen (Tylenol Extra Strength) 500 mg PO Q4H PRN PRN Reason: Pain Acetaminophen (Tylenol Extra Strength) 1,000 mg PO Q4H PRN PRN Reason: Pain Last Admin: 12/22/19 21:57 Dose: 1,000 mg Documented by: Benzocaine/Menthol (Dermoplast Pain Relief 20%-0.5% [place]) 78 gm TOP ASDIRECTED PRN PRN Reason: Perineal Comfort Measure Last Admin: 12/21/19 15:22 Dose: 78 gm Documented by: Bisacodyl (Dulcolax) 10 mg RECTAL ONETIME PRN PRN Reason: Constipation Butorphanol Tartrate (Stadol) 1 mg IVPUSH Q1H PRN PRN Reason: Pain Carboprost Tromethamine (Hemabate Ds) 250 mcg IM ASDIRECTED PRN PRN Reason: Post Hemorrhage Docusate Sodium (Colace) 100 mg PO BID PRN PRN Reason: Constipation Last Admin: 12/22/19 21:58 Dose: 100 mg Documented by: Emollient Ointment (Lansinoh Hpa) 0 gm TOP ASDIRECTED PRN PRN Reason: Sore Nipples Last Admin: 12/21/19 15:20 Dose: 7 gram Documented by: Oxytocin/Sodium Chloride (Oxytocin 30 Unit/500 Ml-Ns) 30 unit in 500 mls @ 999 mls/hr IV TITRATE [facility] Last Admin: 12/21/19 12:03 Dose: 999 mls/hr Documented by: Tranexamic Acid 1,000 mg/ (Sodium Chloride) 110 mls @ 660 mls/hr IV ONETIME PRN PRN Reason: Bleeding Oxytocin/Sodium Chloride (Oxytocin 30 Unit/500 Ml-Ns) 30 unit in 500 mls @ 2 mls/hr IV TITRATE [facility]; Protocol Lactated Ringer's (Ringers, Lactated) 1,000 mls @ 150 mls/hr IV ASDIRECTED [facility] Last Admin: 12/21/19 06:51 Dose: 150 mls/hr Documented by: Ibuprofen (Motrin) 400 mg PO Q4H PRN PRN Reason: Pain Ibuprofen (Motrin) 800 mg PO Q6H PRN PRN Reason: Pain Last Admin: 12/23/19 00:43 Dose: 800 mg Documented by: Labetalol HCl (Normodyne) 100 mg PO BID [facility] Last Admin: 12/22/19 21:57 Dose: 100 mg Documented by: Lidocaine HCl (Xylocaine 1%) 50 ml INJECT ONETIME PRN PRN Reason: Laceration repair Methylergonovine Maleate (Methergine) 0.2 mg IM ASDIRECTED PRN PRN Reason: Post Hemorrhage Misoprostol (Cytotec) 200 mcg PO ONETIME PRN PRN Reason: Post Hemorrhage Misoprostol (Cytotec) 25 mcg VAG Q4H PRN PRN Reason: Cervical Ripening Last Admin: 12/21/19 02:17 Dose: 25 mcg Documented by: Ondansetron HCl (Zofran) 4 mg IVPUSH Q6H PRN PRN Reason: Nausea/Vomiting Oxycodone HCl (Oxycodone) 5 mg PO Q2H PRN PRN Reason: Pain Vits #93/Iron Fum/Fa [ Formula Tablet] 1 each PO DAILY [facility] Last Admin: 12/22/19 14:23 Dose: 1 each Documented by: Sodium Chloride (Saline Flush) 10 ml FLUSH ASDIRECTED PRN PRN Reason: Keep Vein Open Sodium Chloride (Saline Flush) 2.5 ml FLUSH ASDIRECTED PRN PRN Reason: Keep Vein Open Sodium Chloride (Normal Saline) 10 ml IV ASDIRECTED PRN PRN Reason: IV Use Sterile Water (Sterile Water For Irrigation) 1,000 ml IRR ASDIRECTED PRN PRN Reason: delivery Terbutaline Sulfate (Brethine) 0.25 mg SUBCUT ASDIRECTED PRN PRN Reason: Tacysystole Witch Sheree (Tucks) 1 pad TOP ASDIRECTED PRN PRN Reason: comfort care Last Admin: 12/21/19 15:24 Dose: 1 pad Documented by: Discontinued Medications Desflurane (Suprane) Confirm Administered Dose 480 ml .ROUTE .STK-MED ONE Stop: 12/21/19 08:42 Fentanyl (Sublimaze) Confirm Administered Dose 100 mcg .ROUTE .STK-MED ONE Stop: 12/21/19 04:59 Last Admin: 12/22/19 11:00 Dose: Not Given Documented by: Ampicillin Sodium 2 gm/ Sodium (Chloride) 100 mls @ 200 mls/hr IV ONETIME ONE Stop: 12/20/19 17:59 Last Admin: 12/20/19 18:10 Dose: 200 mls/hr Documented by: Ampicillin Sodium 1 gm/ Sodium (Chloride) 50 mls @ 100 mls/hr IV Q4H [facility] Last Admin: 12/22/19 11:01 Dose: Not Given Documented by: Ropivacaine (Naropin 0.2%) Confirm Administered Dose 100 mls @ as directed .ROUTE .STK-MED ONE Stop: 12/21/19 04:59 Last Admin: 12/22/19 10:59 Dose: Not Given Documented by: Labetalol HCl (Normodyne) 100 mg PO BID [facility] Last Admin: 12/22/19 11:04 Dose: Not Given Documented by: Ropivacaine (Naropin 0.2%) Confirm Administered Dose 20 ml .ROUTE .STK-MED ONE Stop: 12/21/19 04:59 Last Admin: 12/22/19 10:59 Dose: Not Given Documented by: - Exam General: Alert, Oriented Lungs: Normal Respiratory Effort Cardiovascular: Regular Rate GI/Abdominal Exam: Soft, Non-Tender Extremities: Normal Inspection, No Pedal Edema Skin: Warm, Dry, Intact Neurological: No New Focal Deficit Psy/Mental Status: Alert, Normal Affect, Normal Mood Sepsis Event Note - Evaluation Sepsis Screening Result: No Definite Risk - Focused Exam Vital Signs: Vital Signs Temp Pulse Pulse Resp BP BP Pulse Ox 12/23/19 04:00 98.0 F 87 14 132/77 98 12/22/19 21:57 85 149/96 H 12/22/19 20:00 97.4 F 95 14 149/96 H 95 - Problem List Review Problem List Initiated/Reviewed/Updated: Yes - My Orders Last 24 Hours: My Active Orders 12/22/19 09:00 Patient's Own Medication [Ptom] 1 each PO DAILY - Assessment Assessment:: 19 year old G1 now P1 PPD #2 s/p IOL for gestational hypertension - Plan Plan:: Routine care * Rh +, rubella immune * GBS positive, status post IV Ampicillin * Hgb 11.6> 10.8 asymptomatic * Encourage fluid intake and ambulation * assistance as needed * Reviewed options for contraception, patient declines at this time. Recommended pelvic rest until visit. Gestational hypertension * BPs normotensive to mild range overnight * Preeclampsia labs negative * Asymptomatic * Continue Labetalol 100mg BID Dispo: stable. Anticipate discharge today pending maternal/ status. Reviewed precautions including fever/chills, intractable nausea/vomiting, severe pain not controlled by Tylenol or Ibuprofen or heavy vaginal bleeding. Patient to follow up in 4-6 weeks for visit.
[2019-12-23] MEDS: Labetalol 100 MG Tab PO SCH (08:59)
[2019-12-23] MEDS: Docusate Sodium 100 MG Cap PO PRN (09:00)
[2019-12-23] MEDS: PRENATAL VITS PO SCH (09:00)
[2019-12-23] MEDS: [UNRECOGNIZED DRUG - OTHER] PO SCH (09:00)
[2019-12-23] MEDS: IRON FUM PO SCH (09:00)
[2019-12-23] MEDS: Witch Hazel Medicated Pads 40/Jar TOP PRN (11:02)
[2019-12-23] MEDS: Benzocaine/Menthol 20%-0.5% Spray 78 GM Cannister TOP PRN (11:03)
[2019-12-23] MEDS: Acetaminophen 500 MG Tab PO PRN (11:03)
[2019-12-23 16:50] VITALS: BP 132/79; PULSE 97
== END 2019-12-23 17:55 | disposition home or self-care (01) | DRG 560 ==
LOC: MW.OBCHECK 17:03 → MW.OB 17:03 → UNDOADMOB 17:12 → MW.OBCHECK 17:12 → OBSVTOIN 12-21 12:36 → INTOOBSV 12-21 12:36 → MW.OB 12-21 15:58 → UNDODISIN 12-23 17:55
PROVIDERS: ADMIT Obstetrics & Gynecology; ATTEND Obstetrics & Gynecology
PROC: 10E0XZZ Delivery of Products of Conception, External Approach (ICD-10-PCS; principal; 2019-12-21)
PROC: 3E0P7VZ Introduction of Hormone into Female Reproductive, Via Natural or Artificial Opening (ICD-10-PCS; 2019-12-21)
PROC: 3E033VJ Introduction of Other Hormone into Peripheral Vein, Percutaneous Approach (ICD-10-PCS; 2019-12-21)
PROC: 0KQM0ZZ Repair Perineum Muscle, Open Approach (ICD-10-PCS; 2019-12-21)
PROC: 3E0R3BZ Introduction of Anesthetic Agent into Spinal Canal, Percutaneous Approach (ICD-10-PCS; 2019-12-21)
DX: O13.4 Gestational [pregnancy-induced] hypertension without significant proteinuria, complicating childbirth (principal); Z37.0 Single live birth; Z3A.37 37 weeks gestation of pregnancy; O70.1 Second degree perineal laceration during delivery; Z20.828 Contact with and (suspected) exposure to other viral communicable diseases
CPT/HCPCS: 01967; 36415; 59025; 59409; 80053; 82570; 82803; 84112; 84156; 84550; 85014; 85018; 85027; 86592; 86850; 86900; 86901; A9270-GY; J0290; J2590; J7050; J7120; U0002

== ENCOUNTER 2023-03-06 19:24 | Emergency (ER) | payer MEDICAID ==
[2023-03-06] MEDS ORDERED: Ketorolac 30 MG/ML SDV IVPUSH ONE (19:36)
[2023-03-06] MEDS ORDERED: Ondansetron 4 MG/2 ML SDV IVPUSH ONE (19:36)
[2023-03-06] MEDS ORDERED: Sodium Chloride 0.9% 1,000 ML IV ONE (19:36)
[2023-03-06 20:07] LABS: BASOPHILS ABSOLUTE AUTO 0.02 K/uL (0.00-0.20); BASOPHILS PERCENT AUTO 0.3 % (0.0-1.0); EOSINOPHILS ABSOLUTE AUTO 0.11 K/uL (0.00-0.45); EOSINOPHILS PERCENT AUTO 1.9 % (0.0-6.0); HEMATOCRIT 43.3 % (37.0-47.0); HEMOGLOBIN 15.1 g/dL (12.0-16.0); IMMATURE GRAN ABSOLUTE AUTO 0.03 K/uL (0.00-0.05); IMMATURE GRAN PERCENT AUTO 0.5 % (0.0-0.4); LYMPHOCYTES ABSOLUTE AUTO 1.55 K/uL (1.00-4.80); LYMPHOCYTES PERCENT AUTO 26.9 % (24.0-44.0); MEAN CORPUSCULAR HEMOGLOBIN 29.4 pg (28.0-32.0); MEAN CORPUSCULAR HGB CONC 34.9 g/dL (32.0-36.0); MEAN CORPUSCULAR VOLUME 84.2 fL (83.0-99.0); MEAN PLATELET VOLUME 10.8 fL (9.4-12.3); MONOCYTES PERCENT AUTO 13.9 % (0.0-8.0); NEUTROPHILS ABSOLUTE AUTO 3.25 K/uL (1.80-7.70); NEUTROPHILS PERCENT AUTO 56.5 % (41.0-71.0); PLATELET COUNT,PLT 204 K/uL (150-400); RED BLOOD CELL COUNT 5.14 M/uL (4.10-5.30); WHITE BLOOD CELL COUNT,WBC 5.76 K/uL (3.9-11.3)
[2023-03-06 20:24] LABS: BILIRUBIN,URINE NEGATIVE (NEGATIVE); COLOR,URINE YELLOW; GLUCOSE,URINE NEGATIVE (NEGATIVE); KETONES,URINE NEGATIVE (NEGATIVE); LEUKOCYTE ESTERASE,URINE NEGATIVE (NEGATIVE); NITRITE,URINE NEGATIVE (NEGATIVE); OCCULT BLOOD,URINE NEGATIVE (NEGATIVE); PH,URINE 6.5 (5.0-8.0); PROTEIN,URINE NEGATIVE (NEGATIVE)
[2023-03-06 20:36] LABS: APPEARANCE,URINE HAZY
[2023-03-06 20:48] LABS: A/G RATIO 1.1 (0.9-1.6); ALANINE AMINOTRANSFERASE,ALT 259 IU/L (14-63); ALBUMIN 4.2 g/dL (3.4-5.0); ALKALINE PHOSPHATASE 101 U/L (46-116); ASPARTATE AMNIOTRANSFERASE,AST 97 IU/L (15-37); BILIRUBIN TOTAL 0.8 mg/dL (0.2-1.0); BLOOD UREA NITROGEN,BUN 8 mg/dL (7.0-18.0); CARBON DIOXIDE,CO2 25.3 mmol/L (21.0-32.0); CHLORIDE,CL 102 mmol/L (98-107); CREATININE 0.7 mg/dL (0.6-1.0); GLUCOSE RANDOM 103 mg/dL (74-106); LIPASE 38 U/L (16-77); POTASSIUM,K 3.2 mmol/L (3.5-5.1); PROTEIN TOTAL,TP 8.1 g/dL (6.4-8.2); SODIUM,NA 137 mmol/L (136-145)
[2023-03-06 20:50] LABS: ESTIMATED GFR 123 mL/min (>60)
[2023-03-06] MEDS ORDERED: Potassium Chloride 20 MEQ Tab.ER PO ONE (20:57)
[2023-03-06 21:03] VITALS: BP 125/76; PULSE 85
== END 2023-03-06 21:11 | disposition home or self-care (01) ==
LOC: MW.ED 19:24
DX: K52.9 Noninfective gastroenteritis and colitis, unspecified (principal); R74.01 Elevation of levels of liver transaminase levels; Z90.49 Acquired absence of other specified parts of digestive tract; Z79.899 Other long term (current) drug therapy; Z91.040 Latex allergy status
CPT/HCPCS: 36415; 80053; 81003; 83690; 85025; 96361; 96374; 96375; 99284; A9270; J1885; J2405; J7030

== ENCOUNTER 2023-06-09 18:50 | Emergency (ER) | payer MEDICAID ==
[2023-06-09] MEDS: Ondansetron 4 MG/2 ML SDV IVPUSH STA (19:48)
[2023-06-09] MEDS: Sodium Chloride 0.9% 1,000 ML IV STA ×2 (19:48→20:34)
[2023-06-09] MEDS: Sodium Chloride 0.9% 2.5 ML Syringe FLUSH PRN (19:49)
[2023-06-09] MEDS: Sodium Chloride 0.9% 10 ML Syringe FLUSH PRN (19:49)
[2023-06-09 20:08] LABS: APPEARANCE,URINE SLT CLOUDY; COLOR,URINE YELLOW; GLUCOSE,URINE NEGATIVE (NEGATIVE); KETONES,URINE TRACE mg/dL (NEGATIVE); LEUKOCYTE ESTERASE,URINE NEGATIVE (NEGATIVE); NITRITE,URINE POSITIVE (NEGATIVE); OCCULT BLOOD,URINE NEGATIVE (NEGATIVE); PH,URINE 6.5 (5.0-8.0); PROTEIN,URINE 100 mg/dL (NEGATIVE); UROBILINOGEN,URINE 0.2 EU/dL (<2.0)
[2023-06-09 20:08] LABS: CORONAVIRUS COVID-19 NAA NEGATIVE (NEGATIVE); INFLUENZA A NAA NEGATIVE (NEGATIVE); INFLUENZA B NAA NEGATIVE (NEGATIVE)
[2023-06-09 20:16] LABS: HEMATOCRIT 48.7 % (37.0-47.0); HEMOGLOBIN 17.2 g/dL (12.0-16.0); MEAN CORPUSCULAR HEMOGLOBIN 29.2 pg (28.0-32.0); MEAN CORPUSCULAR HGB CONC 35.3 g/dL (32.0-36.0); MEAN CORPUSCULAR VOLUME 82.7 fL (83.0-99.0); MEAN PLATELET VOLUME 11.2 fL (9.4-12.3); PLATELET COUNT,PLT 259 K/uL (150-400); RED BLOOD CELL COUNT 5.89 M/uL (4.10-5.30); WHITE BLOOD CELL COUNT,WBC 8.86 K/uL (3.9-11.3)
[2023-06-09 20:18] LABS: BILIRUBIN,URINE SMALL (NEGATIVE)
[2023-06-09 20:27] LABS: RBC,URINE 0-2 (0-2/HPF); WBC,URINE 0-3 (0-5/HPF)
[2023-06-09 20:28] LABS: AMORPHOUS SEDIMENT,URINE FEW (NEGATIVE); BACTERIA,URINE FEW (NEGATIVE); EPITHELIAL CELLS,URINE FEW (NONE-FEW); MUCUS,URINE FEW (NONE-MOD)
[2023-06-09] MEDS: cefTRIAXone 1 GM in Sodium Chloride 0.9% 50 ML IV STA (20:34)
[2023-06-09 20:45] LABS: ALBUMIN 4.8 g/dL (3.4-5.0); CALCIUM 10.1 mg/dL (8.5-10.1); CARBON DIOXIDE,CO2 27.3 mmol/L (21.0-32.0); CREATININE 0.9 mg/dL (0.6-1.0); EST CRCL DRUG DOSING (CG) 79.04 mL/min; POTASSIUM,K 3.2 mmol/L (3.5-5.1); PROTEIN TOTAL,TP 9.5 g/dL (6.4-8.2)
[2023-06-09 20:56] LABS: EOSINOPHILS ABSOLUTE MAN 0.09 K/uL (0.00-0.45); EOSINOPHILS PERCENT MAN 1 % (0-6); LYMPHOCYTES ABSOLUTE MAN 2.39 K/uL (1.00-4.80); LYMPHOCYTES PERCENT MAN 27 % (24-44); MONOCYTES ABSOLUTE MAN 0.97 K/uL (0.00-0.80); MONOCYTES PERCENT MAN 11 % (0-8); SEG NEUTROPHILS PERCENT MAN 61 % (41-71)
[2023-06-09 21:29] VITALS: BP 132/87; PULSE 87
== END 2023-06-09 21:36 | disposition home or self-care (01) ==
LOC: MW.ED 18:50
DX: E86.0 Dehydration (principal); N30.00 Acute cystitis without hematuria; I10 Essential (primary) hypertension; Z79.899 Other long term (current) drug therapy; Z91.040 Latex allergy status
CPT/HCPCS: 0240U; 36415; 80053; 81001; 83690; 83735; 84703; 85025; 87086; 96361; 96365; 96375; 99284; J0696; J2405; J3490; J7030

== ENCOUNTER 2023-09-04 19:25 | Emergency (ER) | payer MEDICAID ==
[2023-09-04 19:41] LABS: BILIRUBIN,URINE NEGATIVE (NEGATIVE); COLOR,URINE YELLOW; GLUCOSE,URINE NEGATIVE (NEGATIVE); KETONES,URINE NEGATIVE (NEGATIVE); LEUKOCYTE ESTERASE,URINE NEGATIVE (NEGATIVE); NITRITE,URINE NEGATIVE (NEGATIVE); OCCULT BLOOD,URINE TRACE-INTACT (NEGATIVE); PROTEIN,URINE NEGATIVE (NEGATIVE); UROBILINOGEN,URINE 0.2 EU/dL (<2.0)
[2023-09-04 19:43] LABS: APPEARANCE,URINE HAZY
[2023-09-04 19:48] LABS: BACTERIA,URINE FEW (NEGATIVE); EPITHELIAL CELLS,URINE MODERATE (NONE-FEW); MUCUS,URINE LIGHT (NONE-MOD); RBC,URINE 0-2 (0-2/HPF); WBC,URINE 0-2 (0-5/HPF)
[2023-09-04] MEDS: Sodium Chloride 0.9% 1,000 ML IV STA (19:59)
[2023-09-04] MEDS: Ketorolac 30 MG/ML SDV IVPUSH STA (20:07)
[2023-09-04] MEDS: Ondansetron 4 MG/2 ML SDV IVPUSH STA (20:07)
[2023-09-04 20:18] LABS: BASOPHILS ABSOLUTE AUTO 0.02 K/uL (0.00-0.20); BASOPHILS PERCENT AUTO 0.2 % (0.0-1.0); EOSINOPHILS ABSOLUTE AUTO 0.24 K/uL (0.00-0.45); EOSINOPHILS PERCENT AUTO 2.3 % (0.0-6.0); HEMATOCRIT 43.9 % (37.0-47.0); HEMOGLOBIN 14.9 g/dL (12.0-16.0); IMMATURE GRAN ABSOLUTE AUTO 0.04 K/uL (0.00-0.05); IMMATURE GRAN PERCENT AUTO 0.4 % (0.0-0.4); LYMPHOCYTES ABSOLUTE AUTO 2.83 K/uL (1.00-4.80); LYMPHOCYTES PERCENT AUTO 27.1 % (24.0-44.0); MEAN CORPUSCULAR HEMOGLOBIN 29.1 pg (28.0-32.0); MEAN CORPUSCULAR HGB CONC 33.9 g/dL (32.0-36.0); MEAN CORPUSCULAR VOLUME 85.7 fL (83.0-99.0); MEAN PLATELET VOLUME 10.8 fL (9.4-12.3); MONOCYTES ABSOLUTE AUTO 0.81 K/uL (0.00-0.80); MONOCYTES PERCENT AUTO 7.8 % (0.0-8.0); NEUTROPHILS ABSOLUTE AUTO 6.51 K/uL (1.80-7.70); NEUTROPHILS PERCENT AUTO 62.2 % (41.0-71.0); PLATELET COUNT,PLT 218 K/uL (150-400); RED BLOOD CELL COUNT 5.12 M/uL (4.10-5.30); WHITE BLOOD CELL COUNT,WBC 10.45 K/uL (3.9-11.3)
[2023-09-04 20:44] LABS: ALBUMIN 4.1 g/dL (3.4-5.0); BILIRUBIN TOTAL 0.6 mg/dL (0.2-1.0); CALCIUM 9.4 mg/dL (8.5-10.1); CARBON DIOXIDE,CO2 25.5 mmol/L (21.0-32.0); CREATININE 0.8 mg/dL (0.6-1.0); EST CRCL DRUG DOSING (CG) 85.02 mL/min; POTASSIUM,K 3.6 mmol/L (3.5-5.1); PROTEIN TOTAL,TP 8.2 g/dL (6.4-8.2)
[2023-09-04] MEDS: Morphine 4 MG/ML Syringe IVPUSH STA (20:51)
[2023-09-04 21:50] VITALS: BP 145/89; PULSE 80
== END 2023-09-04 21:49 | disposition home or self-care (01) ==
LOC: MW.ED 19:25
DX: K76.0 Fatty (change of) liver, not elsewhere classified (principal); I10 Essential (primary) hypertension; Z75.8 Other problems related to medical facilities and other health care; Z91.040 Latex allergy status; Z79.899 Other long term (current) drug therapy; Z90.49 Acquired absence of other specified parts of digestive tract
CPT/HCPCS: 36415; 74176; 80053; 81001; 83690; 84703; 85025; 96361; 96374; 96375; 99284; J1885; J2270; J2405; J7030

== ENCOUNTER 2023-09-17 14:22 | Emergency (ER) | payer MEDICAID ==
[2023-09-17 15:26] VITALS: BP 145/87; PULSE 96
[2023-09-17] MEDS: Acetaminophen 500 MG Tab PO STA (16:19)
[2023-09-17] MEDS: oxyCODONE 5 MG Tab PO STA (16:19)
[2023-09-17] MEDS: Ibuprofen 800 MG Tab PO STA (16:20)
== END 2023-09-17 17:47 | disposition home or self-care (01) ==
LOC: MW.ED 14:22
DX: S93.402A Sprain of unspecified ligament of left ankle, initial encounter (principal); I10 Essential (primary) hypertension; Z75.8 Other problems related to medical facilities and other health care; Z91.040 Latex allergy status; Z79.899 Other long term (current) drug therapy; Z90.49 Acquired absence of other specified parts of digestive tract; X50.1XXA Overexertion from prolonged static or awkward postures, initial encounter
CPT/HCPCS: 73630; 99283; A9270

== ENCOUNTER 2024-01-01 16:47 | Emergency (ER) | payer OTHER, MEDICAID ==
[2024-01-01 17:31] LABS: BASOPHILS ABSOLUTE AUTO 0.05 K/uL (0.00-0.20); BASOPHILS PERCENT AUTO 0.5 % (0.0-1.0); EOSINOPHILS ABSOLUTE AUTO 0.39 K/uL (0.00-0.45); EOSINOPHILS PERCENT AUTO 3.5 % (0.0-6.0); HEMATOCRIT 40.3 % (37.0-47.0); HEMOGLOBIN 13.9 g/dL (12.0-16.0); IMMATURE GRAN ABSOLUTE AUTO 0.05 K/uL (0.00-0.05); IMMATURE GRAN PERCENT AUTO 0.5 % (0.0-0.4); LYMPHOCYTES ABSOLUTE AUTO 2.19 K/uL (1.00-4.80); LYMPHOCYTES PERCENT AUTO 19.9 % (24.0-44.0); MEAN CORPUSCULAR HEMOGLOBIN 29.5 pg (28.0-32.0); MEAN CORPUSCULAR HGB CONC 34.5 g/dL (32.0-36.0); MEAN CORPUSCULAR VOLUME 85.6 fL (83.0-99.0); MEAN PLATELET VOLUME 10.6 fL (9.4-12.3); MONOCYTES ABSOLUTE AUTO 1.09 K/uL (0.00-0.80); MONOCYTES PERCENT AUTO 9.9 % (0.0-8.0); NEUTROPHILS ABSOLUTE AUTO 7.26 K/uL (1.80-7.70); NEUTROPHILS PERCENT AUTO 65.7 % (41.0-71.0); PLATELET COUNT,PLT 208 K/uL (150-400); RED BLOOD CELL COUNT 4.71 M/uL (4.10-5.30); WHITE BLOOD CELL COUNT,WBC 11.03 K/uL (3.9-11.3)
[2024-01-01] MEDS: Ondansetron 4 MG Tab.DIS PO ONE (17:37)
[2024-01-01] MEDS: Acetaminophen 500 MG Tab PO ONE (17:37)
[2024-01-01 17:47] LABS: APPEARANCE,URINE CLEAR; BILIRUBIN,URINE NEGATIVE (NEGATIVE); COLOR,URINE YELLOW; GLUCOSE,URINE NEGATIVE (NEGATIVE); KETONES,URINE NEGATIVE (NEGATIVE); LEUKOCYTE ESTERASE,URINE NEGATIVE (NEGATIVE); NITRITE,URINE NEGATIVE (NEGATIVE); OCCULT BLOOD,URINE NEGATIVE (NEGATIVE); PROTEIN,URINE NEGATIVE (NEGATIVE); UROBILINOGEN,URINE 0.2 EU/dL (<2.0)
[2024-01-01 18:52] VITALS: BP 143/88; PULSE 84
== END 2024-01-01 18:52 | disposition home or self-care (01) ==
LOC: MW.ED 16:47
DX: O20.0 Threatened abortion (principal); I10 Essential (primary) hypertension; Z91.040 Latex allergy status; Z79.899 Other long term (current) drug therapy; Z90.49 Acquired absence of other specified parts of digestive tract; Z3A.09 9 weeks gestation of pregnancy; Z75.8 Other problems related to medical facilities and other health care
CPT/HCPCS: 36415; 76817; 81003; 84702; 85025; 99284; A9270; 99283

== ENCOUNTER 2024-02-28 20:06 | Emergency (ER) | payer MEDICAID, OTHER ==
[2024-02-28 20:40] LABS: BASOPHILS ABSOLUTE AUTO 0.04 K/uL (0.00-0.20); BASOPHILS PERCENT AUTO 0.3 % (0.0-1.0); EOSINOPHILS PERCENT AUTO 1.6 % (0.0-6.0); HEMATOCRIT 35.9 % (37.0-47.0); HEMOGLOBIN 12.5 g/dL (12.0-16.0); IMMATURE GRAN ABSOLUTE AUTO 0.14 K/uL (0.00-0.05); IMMATURE GRAN PERCENT AUTO 1.1 % (0.0-0.4); LYMPHOCYTES ABSOLUTE AUTO 2.71 K/uL (1.00-4.80); LYMPHOCYTES PERCENT AUTO 21.7 % (24.0-44.0); MEAN CORPUSCULAR HEMOGLOBIN 29.7 pg (28.0-32.0); MEAN CORPUSCULAR HGB CONC 34.8 g/dL (32.0-36.0); MEAN CORPUSCULAR VOLUME 85.3 fL (83.0-99.0); MEAN PLATELET VOLUME 11.1 fL (9.4-12.3); MONOCYTES ABSOLUTE AUTO 0.71 K/uL (0.00-0.80); MONOCYTES PERCENT AUTO 5.7 % (0.0-8.0); NEUTROPHILS ABSOLUTE AUTO 8.66 K/uL (1.80-7.70); NEUTROPHILS PERCENT AUTO 69.6 % (41.0-71.0); PLATELET COUNT,PLT 191 K/uL (150-400); RED BLOOD CELL COUNT 4.21 M/uL (4.10-5.30); WHITE BLOOD CELL COUNT,WBC 12.46 K/uL (3.9-11.3)
[2024-02-28 20:58] LABS: BILIRUBIN,URINE NEGATIVE (NEGATIVE); COLOR,URINE YELLOW; GLUCOSE,URINE NEGATIVE (NEGATIVE); KETONES,URINE NEGATIVE (NEGATIVE); LEUKOCYTE ESTERASE,URINE TRACE (NEGATIVE); NITRITE,URINE NEGATIVE (NEGATIVE); OCCULT BLOOD,URINE NEGATIVE (NEGATIVE); PH,URINE 6.5 (5.0-8.0); PROTEIN,URINE NEGATIVE (NEGATIVE); UROBILINOGEN,URINE 0.2 EU/dL (<2.0)
[2024-02-28 20:59] LABS: APPEARANCE,URINE SLT CLOUDY
[2024-02-28 21:06] LABS: A/G RATIO 0.9 (0.9-1.6); ALANINE AMINOTRANSFERASE,ALT 72 IU/L (14-63); ALBUMIN 3.4 g/dL (3.4-5.0); ALKALINE PHOSPHATASE 73 U/L (46-116); ASPARTATE AMNIOTRANSFERASE,AST 27 IU/L (15-37); BILIRUBIN TOTAL 0.4 mg/dL (0.2-1.0); BLOOD UREA NITROGEN,BUN 6 mg/dL (7.0-18.0); CALCIUM 9.2 mg/dL (8.5-10.1); CARBON DIOXIDE,CO2 25.1 mmol/L (21.0-32.0); CHLORIDE,CL 104 mmol/L (98-107); CREATININE 0.6 mg/dL (0.6-1.0); GLUCOSE RANDOM 119 mg/dL (74-106); LIPASE 52 U/L (16-77); POTASSIUM,K 3.2 mmol/L (3.5-5.1); PROTEIN TOTAL,TP 7.2 g/dL (6.4-8.2); SODIUM,NA 139 mmol/L (136-145)
[2024-02-28 21:11] LABS: ESTIMATED GFR 127 mL/min (>60)
[2024-02-28 21:15] LABS: BACTERIA,URINE FEW (NEGATIVE); EPITHELIAL CELLS,URINE MODERATE (NONE-FEW); RBC,URINE 0-1 (0-2/HPF); WBC,URINE 0-5 (0-5/HPF)
[2024-02-28] MEDS: Cephalexin 500 MG Cap PO STA (22:48)
[2024-02-29 00:28] VITALS: BP 135/79; PULSE 87
== END 2024-02-28 22:52 | disposition home or self-care (01) ==
LOC: MW.ED 20:06
DX: O99.612 Diseases of the digestive system complicating pregnancy, second trimester (principal); K59.00 Constipation, unspecified; O10.912 Unspecified pre-existing hypertension complicating pregnancy, second trimester; O99.891 Other specified diseases and conditions complicating pregnancy; R82.71 Bacteriuria; Z3A.14 14 weeks gestation of pregnancy; Z90.49 Acquired absence of other specified parts of digestive tract; Z79.899 Other long term (current) drug therapy; Z91.040 Latex allergy status; Z75.8 Other problems related to medical facilities and other health care
CPT/HCPCS: 36415; 76810; 80053; 81001; 83690; 84702; 85025; 87086; 99284; A9270

== ENCOUNTER 2024-05-15 08:54 | Emergency (ER) | payer OTHER ==
[2024-05-15] MEDS: Acetaminophen 500 MG Tab PO ONE (09:27)
[2024-05-15 10:11] LABS: CORONAVIRUS COVID-19 NAA NEGATIVE (NEGATIVE); INFLUENZA A NAA NEGATIVE (NEGATIVE); INFLUENZA B NAA NEGATIVE (NEGATIVE); RESPIRATORY SYNCYTIAL VIR NAA NEGATIVE (NEGATIVE)
[2024-05-15 10:23] VITALS: BP 124/67; PULSE 99
== END 2024-05-15 10:23 | disposition home or self-care (01) ==
LOC: MW.ED 08:54
DX: O99.891 Other specified diseases and conditions complicating pregnancy (principal); R05.9 Cough, unspecified; R09.81 Nasal congestion; H92.03 Otalgia, bilateral; Z90.49 Acquired absence of other specified parts of digestive tract; Z91.040 Latex allergy status; Z79.899 Other long term (current) drug therapy; Z3A.25 25 weeks gestation of pregnancy
CPT/HCPCS: 0241U; 96374; 99283; A9270; J1100

== ENCOUNTER 2024-07-05 22:57 | Emergency (ER) | payer OTHER, MEDICAID ==
[2024-07-05 23:16] LABS: APPEARANCE,URINE CLOUDY; BILIRUBIN,URINE NEGATIVE (NEGATIVE); COLOR,URINE YELLOW; GLUCOSE,URINE NEGATIVE (NEGATIVE); KETONES,URINE NEGATIVE (NEGATIVE); LEUKOCYTE ESTERASE,URINE SMALL (NEGATIVE); NITRITE,URINE POSITIVE (NEGATIVE); OCCULT BLOOD,URINE LARGE (NEGATIVE); PH,URINE 5.5 (5.0-8.0); PROTEIN,URINE 100 mg/dL (NEGATIVE); UROBILINOGEN,URINE 0.2 EU/dL (<2.0)
[2024-07-05 23:30] LABS: EPITHELIAL CELLS,URINE FEW (NONE-FEW); RBC,URINE 20-30 (0-2/HPF); WBC,URINE 30-40 (0-5/HPF)
[2024-07-05 23:31] LABS: BACTERIA,URINE FEW (NEGATIVE)
[2024-07-06] MEDS: Cephalexin 500 MG Cap PO ONE (01:59)
[2024-07-06 02:00] VITALS: BP 145/84; PULSE 90
== END 2024-07-06 02:03 | disposition home or self-care (01) ==
LOC: MW.ED 22:57
DX: O86.20 Urinary tract infection following delivery, unspecified (principal); O10.03 Pre-existing essential hypertension complicating the puerperium; Z91.040 Latex allergy status; Z79.82 Long term (current) use of aspirin; Z79.899 Other long term (current) drug therapy
CPT/HCPCS: 81001; 87086; 99283; A9270

== ENCOUNTER 2024-07-21 11:39 | Observation (INO) | payer OTHER ==
[2024-07-21 14:12] VITALS: PULSE 78
[2024-07-21 14:22] LABS: APPEARANCE,URINE CLEAR; BILIRUBIN,URINE NEGATIVE (NEGATIVE); COLOR,URINE YELLOW; GLUCOSE,URINE NEGATIVE (NEGATIVE); KETONES,URINE NEGATIVE (NEGATIVE); LEUKOCYTE ESTERASE,URINE NEGATIVE (NEGATIVE); NITRITE,URINE NEGATIVE (NEGATIVE); OCCULT BLOOD,URINE MODERATE (NEGATIVE); PH,URINE 5.5 (5.0-8.0); PROTEIN,URINE NEGATIVE (NEGATIVE); UROBILINOGEN,URINE 0.2 EU/dL (<2.0)
[2024-07-21] MEDS ORDERED: Sodium Chloride 0.9% 20 ML SDV IV PRN (14:22)
[2024-07-21] MEDS ORDERED: Sodium Chloride 0.9% 2.5 ML Syringe FLUSH PRN (14:22)
[2024-07-21] MEDS ORDERED: Sodium Chloride 0.9% 10 ML Syringe FLUSH PRN (14:22)
[2024-07-21 14:53] LABS: HEMOGLOBIN 12.3 g/dL (12.0-16.0); MEAN CORPUSCULAR HEMOGLOBIN 27.3 pg (28.0-32.0); MEAN CORPUSCULAR HGB CONC 32.4 g/dL (32.0-36.0); MEAN CORPUSCULAR VOLUME 84.4 fL (83.0-99.0); MEAN PLATELET VOLUME 11.2 fL (9.4-12.3); PLATELET COUNT,PLT 262 K/uL (150-400); WHITE BLOOD CELL COUNT,WBC 7.29 K/uL (3.9-11.3)
[2024-07-21 15:25] LABS: A/G RATIO 1.2 (0.9-1.6); ALBUMIN 4.1 g/dL (3.4-5.0); BILIRUBIN TOTAL 0.9 mg/dL (0.2-1.0); CALCIUM 9.3 mg/dL (8.5-10.1); CARBON DIOXIDE,CO2 27.5 mmol/L (21.0-32.0); CREATININE 0.7 mg/dL (0.6-1.0); EST CRCL DRUG DOSING (CG) 100.74 mL/min; POTASSIUM,K 3.7 mmol/L (3.5-5.1); PROTEIN TOTAL,TP 7.6 g/dL (6.4-8.2)
[2024-07-21 17:47] VITALS: BP 134/74
[2024-07-21 20:57] LABS: CREATININE,URINE RAND 30.4 mg/dL
[2024-07-21 21:01] LABS: PROTEIN,URINE RANDOM < 6.0 mg/dL (<11.9)
== END 2024-07-21 17:26 | disposition home or self-care (01) ==
LOC: MW.ED 11:39 → MW.OB 13:50
PROVIDERS: ADMIT Obstetrics & Gynecology; ATTEND Obstetrics & Gynecology
DX: O11.5 Pre-existing hypertension with pre-eclampsia, complicating the puerperium (principal); O99.215 Obesity complicating the puerperium; E66.01 Morbid (severe) obesity due to excess calories
CPT/HCPCS: 36415; 80053; 81003; 82570; 84156; 85027; 99283

== ENCOUNTER 2024-08-30 13:35 | Emergency (ER) | payer OTHER ==
[2024-08-30 14:01] LABS: BASOPHILS ABSOLUTE AUTO 0.03 K/uL (0.00-0.20); BASOPHILS PERCENT AUTO 0.3 % (0.0-1.0); EOSINOPHILS ABSOLUTE AUTO 0.25 K/uL (0.00-0.45); EOSINOPHILS PERCENT AUTO 2.6 % (0.0-6.0); HEMATOCRIT 40.7 % (37.0-47.0); HEMOGLOBIN 13.4 g/dL (12.0-16.0); IMMATURE GRAN ABSOLUTE AUTO 0.08 K/uL (0.00-0.05); IMMATURE GRAN PERCENT AUTO 0.8 % (0.0-0.4); LYMPHOCYTES ABSOLUTE AUTO 1.93 K/uL (1.00-4.80); LYMPHOCYTES PERCENT AUTO 20.2 % (24.0-44.0); MEAN CORPUSCULAR HEMOGLOBIN 27.6 pg (28.0-32.0); MEAN CORPUSCULAR HGB CONC 32.9 g/dL (32.0-36.0); MEAN CORPUSCULAR VOLUME 83.9 fL (83.0-99.0); MEAN PLATELET VOLUME 10.9 fL (9.4-12.3); MONOCYTES ABSOLUTE AUTO 0.79 K/uL (0.00-0.80); MONOCYTES PERCENT AUTO 8.3 % (0.0-8.0); NEUTROPHILS ABSOLUTE AUTO 6.49 K/uL (1.80-7.70); NEUTROPHILS PERCENT AUTO 67.8 % (41.0-71.0); PLATELET COUNT,PLT 254 K/uL (150-400); RED BLOOD CELL COUNT 4.85 M/uL (4.10-5.30); WHITE BLOOD CELL COUNT,WBC 9.57 K/uL (3.9-11.3)
[2024-08-30 14:03] LABS: APPEARANCE,URINE CLEAR; BILIRUBIN,URINE NEGATIVE (NEGATIVE); COLOR,URINE YELLOW; GLUCOSE,URINE NEGATIVE (NEGATIVE); KETONES,URINE NEGATIVE (NEGATIVE); LEUKOCYTE ESTERASE,URINE NEGATIVE (NEGATIVE); NITRITE,URINE NEGATIVE (NEGATIVE); OCCULT BLOOD,URINE NEGATIVE (NEGATIVE); PROTEIN,URINE NEGATIVE (NEGATIVE); UROBILINOGEN,URINE 0.2 EU/dL (<2.0)
[2024-08-30 14:31] LABS: A/G RATIO 1.2 (0.9-1.6); ALANINE AMINOTRANSFERASE,ALT 116 IU/L (14-63); ALBUMIN 4.3 g/dL (3.4-5.0); ALKALINE PHOSPHATASE 91 U/L (46-116); ASPARTATE AMNIOTRANSFERASE,AST 41 IU/L (15-37); BILIRUBIN TOTAL 0.8 mg/dL (0.2-1.0); BLOOD UREA NITROGEN,BUN 10 mg/dL (7.0-18.0); CALCIUM 9.2 mg/dL (8.5-10.1); CARBON DIOXIDE,CO2 26.6 mmol/L (21.0-32.0); CHLORIDE,CL 102 mmol/L (98-107); CREATININE 0.7 mg/dL (0.6-1.0); GLUCOSE RANDOM 98 mg/dL (74-106); LIPASE 36 U/L (16-77); POTASSIUM,K 3.9 mmol/L (3.5-5.1); PROTEIN TOTAL,TP 7.8 g/dL (6.4-8.2); SODIUM,NA 138 mmol/L (136-145)
[2024-08-30 14:34] LABS: ESTIMATED GFR 122 mL/min (>60)
[2024-08-30] MEDS: Iopamidol 755 MG/ML 500 ML Multipack Bottle IVPUSH STA (15:35)
[2024-08-30] MEDS: diphenhydrAMINE 50 MG/ML SDV ONE (15:47)
[2024-08-30] MEDS: diphenhydrAMINE 50 MG/ML SDV IVPUSH ONE (15:49)
[2024-08-30] MEDS: Sodium Chloride 0.9% 1,000 ML IV SCH (15:49)
[2024-08-30] MEDS: methylPREDNISolone Sodium Succinate 125 MG/2 ML SDV IVPUSH ONE (16:13)
[2024-08-30 16:15] VITALS: BP 144/99; PULSE 99
[2024-08-30] MEDS: Sodium Chloride 0.9% 1,000 ML IV ONE (16:57)
== END 2024-08-30 18:03 | disposition home or self-care (01) ==
LOC: MW.ED 13:35
DX: K76.0 Fatty (change of) liver, not elsewhere classified (principal); T50.8X5A Adverse effect of diagnostic agents, initial encounter; I10 Essential (primary) hypertension; Z91.040 Latex allergy status; Z91.041 Radiographic dye allergy status; Z79.899 Other long term (current) drug therapy; Z86.16 Personal history of COVID-19; Z90.49 Acquired absence of other specified parts of digestive tract
CPT/HCPCS: 36415; 74177; 80053; 81003; 81025; 83690; 85025; 96374; 96375; 99284; J1200; J2919; J7030; Q9967; 99283

== ENCOUNTER 2024-10-26 20:53 | Emergency (ER) | payer MEDICAID, OTHER ==
[2024-10-26 21:03] LABS: APPEARANCE,URINE SLT CLOUDY; GLUCOSE,URINE NEGATIVE (NEGATIVE); OCCULT BLOOD,URINE TRACE-INTACT (NEGATIVE)
[2024-10-26 21:13] LABS: SQUAMOUS EPITHELIAL CELLS,UR MODERATE
[2024-10-26 21:38] LABS: BASOPHILS ABSOLUTE AUTO 0.03 K/uL (0.00-0.20); BASOPHILS PERCENT AUTO 0.4 % (0.0-1.0); EOSINOPHILS ABSOLUTE AUTO 0.13 K/uL (0.00-0.45); EOSINOPHILS PERCENT AUTO 1.7 % (0.0-6.0); IMMATURE GRAN ABSOLUTE AUTO 0.01 K/uL (0.00-0.05); IMMATURE GRAN PERCENT AUTO 0.1 % (0.0-0.4); LYMPHOCYTES ABSOLUTE AUTO 2.11 K/uL (1.00-4.80); LYMPHOCYTES PERCENT AUTO 28.1 % (24.0-44.0); MEAN PLATELET VOLUME 11.2 fL (9.4-12.3); MONOCYTES ABSOLUTE AUTO 0.62 K/uL (0.00-0.80); MONOCYTES PERCENT AUTO 8.2 % (0.0-8.0); NEUTROPHILS ABSOLUTE AUTO 4.62 K/uL (1.80-7.70); NEUTROPHILS PERCENT AUTO 61.5 % (41.0-71.0); NRBC ABSOLUTE 0.00 K/uL (0.00-0.02); NRBC PERCENT 0.0 /100WBC (0.0-0.2); PLATELET COUNT,PLT 233 K/uL (150-400); RED BLOOD CELL COUNT 4.56 M/uL (4.10-5.30); WHITE BLOOD CELL COUNT,WBC 7.52 K/uL (3.9-11.3)
[2024-10-26] MEDS: Nitrofurantoin Monohydrate/Macrocrystalline 100 MG Cap PO ONE (21:49)
[2024-10-26 22:08] LABS: A/G RATIO 1.3 (0.9-1.6); ALANINE AMINOTRANSFERASE,ALT 127.0 IU/L (14-63); ASPARTATE AMNIOTRANSFERASE,AST 41.0 IU/L (15-37); BILIRUBIN TOTAL 1.1 mg/dL (0.2-1.0); BLOOD UREA NITROGEN,BUN 12.0 mg/dL (7.0-18.0); CARBON DIOXIDE,CO2 24.3 mmol/L (21.0-32.0); CHLORIDE,CL 102.0 mmol/L (98-107); CREATININE 0.8 mg/dL (0.6-1.0); EST CRCL DRUG DOSING (CG) 88.15 mL/min; GLUCOSE RANDOM 109.0 mg/dL (74-106); POTASSIUM,K 3.3 mmol/L (3.5-5.1); PROTEIN TOTAL,TP 8.3 g/dL (6.4-8.2); SODIUM,NA 139.0 mmol/L (136-145)
[2024-10-26 22:10] LABS: ESTIMATED GFR 104.0 mL/min (>60)
[2024-10-26 22:11] LABS: INR 1.07 (0.86-1.11); PTT,PARTIAL THROMBOPLSTIN TIME 26.8 SEC (23.9-30.7)
[2024-10-26 22:18] LABS: LACTIC ACID 0.6 mmol/L (0.4-2.0)
[2024-10-26 23:51] VITALS: BP 146/89; PULSE 90
== END 2024-10-26 22:33 | disposition home or self-care (01) ==
LOC: MW.ED 20:53
DX: N39.0 Urinary tract infection, site not specified (principal); E86.0 Dehydration; R94.5 Abnormal results of liver function studies; I10 Essential (primary) hypertension; Z87.891 Personal history of nicotine dependence; Z90.49 Acquired absence of other specified parts of digestive tract; Z91.041 Radiographic dye allergy status; Z91.040 Latex allergy status; Z79.899 Other long term (current) drug therapy; Z75.3 Unavailability and inaccessibility of health-care facilities
CPT/HCPCS: 36415; 80053; 81001; 81025; 83605; 83690; 83735; 85025; 85610; 85730; 96360; 99284; A9270; J7030; 99283